=== PATIENT | male | born 1980 | race American Indian/Alaskan Native ===

== ENCOUNTER 2019-04-11 17:14 | Emergency (ER) | payer SELFPAY ==
[2019-04-11 17:41] VITALS: BP 166/112
--- NOTE | 2019-04-11 17:42 | Event Note ---
ED Screening Note Date of service: 04/11/19 Time: 17:40 ED Screening Note: This is a 39 y.o. M. that presents to the ER with headache and right foot pain. Reports right foot injury at the age of 15 and pain flare occasionally. Denies recent injury. This initial assessment/diagnostic orders/clinical plan/treatment(s) is/are subject to change based on patients health status, clinical progression and re- assessment by fellow clinical providers in the ED. Further treatment and workup at subsequent clinical providers discretion. Patient/guardian urged not to elope from the ED as their condition may be serious if not clinically assessed and managed. Initial orders include:
== END 2019-04-11 19:40 | disposition left against medical advice (07) ==
LOC: ED 17:14
DX: R51 Headache (principal); Z53.21 Procedure and treatment not carried out due to patient leaving prior to being seen by health care provider